=== PATIENT | female | born 1950 | race Asian ===

== ENCOUNTER → 2016-11-14 | Outpatient (CLI) | payer OTHER, MEDICAID | LOC: BHFA 08:30 | PROVIDERS: ATTEND Internal Medicine Cardiovascular Disease | DX: I25.10 Atherosclerotic heart disease of native coronary artery without angina pectoris (principal); Z95.1 Presence of aortocoronary bypass graft ==

== ENCOUNTER → 2016-11-14 | Outpatient (CLI) | payer OTHER, MEDICAID ==
--- NOTE | 2016-11-14 10:41 | DX ---
Cervical spine, 4 views. HISTORY: Chronic right shoulder pain. FINDINGS: Intervertebral disc height loss is identified at C5-C6 and C6-C7 compatible with advanced d egenerative disc disease. There is also evidence of lower cervical facet degenerative joint disease a nd uncovertebral degenerative hypertrophy. Minimal degenerative anterolisthesis of C4 upon C5. No fra cture identified. Prior median sternotomy with sternal suture. IMPRESSION: 1. Degenerative disc disease at C5-C6 and C6-C7, with mild degenerative anterolisthesis of C4 upon C5 . Lower cervical facet and uncovertebral degenerative arthropathy.
== END ==
LOC: FIMAGING 09:00
PROVIDERS: ATTEND Family Medicine
DX: M50.322 Other cervical disc degeneration at C5-C6 level (principal); M50.323 Other cervical disc degeneration at C6-C7 level; M50.221 Other cervical disc displacement at C4-C5 level; M46.92 Unspecified inflammatory spondylopathy, cervical region